=== PATIENT | female | born 1945 | race Two or more races ===

== ENCOUNTER 2017-09-18 12:16 | Outpatient (CLI) | payer OTHER ==
[~2017-09-18 12:16] MED LIST: PERCOCET 5/3251 TAB PO
== END 2017-09-18 12:59 | disposition home or self-care (01) ==
LOC: RAD 12:16
DX: J45.20 Mild intermittent asthma, uncomplicated (principal)

== ENCOUNTER 2018-11-13 11:40 | Outpatient (CLI) | payer OTHER | END 2018-11-13 11:54 | disposition home or self-care (01) | LOC: MAMO-SONO 11:40 | DX: Z12.31 Encounter for screening mammogram for malignant neoplasm of breast (principal); Z87.898 Personal history of other specified conditions; N60.11 Diffuse cystic mastopathy of right breast; N60.12 Diffuse cystic mastopathy of left breast ==

== ENCOUNTER → 2019-02-25 | Outpatient (CLI) | payer OTHER | END | disposition home or self-care (01) | LOC: RAD 14:59 | DX: S63.002A Unspecified subluxation of left wrist and hand, initial encounter (principal) ==

== ENCOUNTER 2019-02-26 10:13 | Outpatient (CLI) | payer OTHER | END 2019-02-26 10:14 | disposition home or self-care (01) | LOC: SONOGRAMA 10:13 → MAMO-SONO 10:15 | DX: S60.012A Contusion of left thumb without damage to nail, initial encounter (principal) ==

== ENCOUNTER 2020-06-01 12:42 | Outpatient (CLI) | payer OTHER | END 2020-06-01 12:50 | disposition home or self-care (01) | LOC: MAMO-SONO 12:42 | PROVIDERS: ATTEND Family Medicine | DX: Z12.31 Encounter for screening mammogram for malignant neoplasm of breast (principal); N60.11 Diffuse cystic mastopathy of right breast; N60.12 Diffuse cystic mastopathy of left breast ==

== ENCOUNTER 2020-07-02 13:47 | Outpatient (CLI) | payer OTHER | END 2020-07-02 13:48 | disposition home or self-care (01) | LOC: NUCLEAR 13:47 | PROVIDERS: ATTEND Family Medicine | DX: M85.80 Other specified disorders of bone density and structure, unspecified site (principal); M81.0 Age-related osteoporosis without current pathological fracture ==

== ENCOUNTER 2020-08-10 10:46 | Outpatient (CLI) | payer OTHER | END 2020-08-10 10:59 | disposition home or self-care (01) | LOC: RAD 10:46 | PROVIDERS: ATTEND Family Medicine | DX: R05 Cough (principal) ==

== ENCOUNTER 2021-09-19 11:48 | Outpatient (CLI) | payer OTHER | END 2021-09-19 11:57 | disposition home or self-care (01) | LOC: TOM 11:48 | PROVIDERS: ATTEND Family Medicine | DX: S00.93XA Contusion of unspecified part of head, initial encounter (principal) ==

== ENCOUNTER 2022-06-05 13:24 | Outpatient (CLI) | payer OTHER | END 2022-06-05 13:39 | disposition home or self-care (01) | LOC: MAMO-SONO 13:24 | PROVIDERS: ATTEND Family Medicine | DX: N60.11 Diffuse cystic mastopathy of right breast (principal); N60.12 Diffuse cystic mastopathy of left breast ==

== ENCOUNTER → 2022-06-21 | Outpatient (CLI) | payer OTHER | END | disposition home or self-care (01) | LOC: NUCLEAR 11:00 | PROVIDERS: ATTEND Family Medicine | DX: I73.9 Peripheral vascular disease, unspecified (principal) ==

== ENCOUNTER → 2022-06-23 | Outpatient (CLI) | payer OTHER | END | disposition home or self-care (01) | LOC: NUCLEAR 11:00 | DX: M81.0 Age-related osteoporosis without current pathological fracture (principal); I87.2 Venous insufficiency (chronic) (peripheral) ==

== ENCOUNTER 2022-09-11 09:53 | Outpatient (CLI) | payer OTHER | END 2022-09-11 10:10 | disposition home or self-care (01) | LOC: TOM 09:53 | PROVIDERS: ATTEND Internal Medicine Pulmonary Disease | DX: J43.2 Centrilobular emphysema (principal); Z72.0 Tobacco use; R06.02 Shortness of breath ==

== ENCOUNTER 2022-10-26 12:54 | Outpatient (CLI) | payer OTHER | END 2022-10-26 12:58 | disposition home or self-care (01) | LOC: RAD 12:54 | PROVIDERS: ATTEND Family Medicine | DX: R07.81 Pleurodynia (principal) ==

== ENCOUNTER 2024-03-03 10:28 | Outpatient (CLI) | payer OTHER ==
[~2024-03-03 10:28] MED LIST changes: +COZAAR100 MG
== END 2024-03-03 10:36 | disposition home or self-care (01) ==
LOC: RAD 10:28
PROVIDERS: ATTEND Family Medicine
DX: M25.519 Pain in unspecified shoulder (principal)

== ENCOUNTER 2024-03-19 12:18 | Outpatient (CLI) | payer OTHER | END 2024-03-19 12:29 | disposition home or self-care (01) | LOC: MRI 12:18 | PROVIDERS: ATTEND Family Medicine | DX: M75.102 Unspecified rotator cuff tear or rupture of left shoulder, not specified as traumatic (principal) | CPT/HCPCS: 73218 ==

== ENCOUNTER → 2024-12-23 | Outpatient (CLI) | payer OTHER | END | disposition home or self-care (01) | LOC: RAD 12:17 | PROVIDERS: ATTEND Family Medicine | DX: S70.01XA Contusion of right hip, initial encounter (principal) ==

== ENCOUNTER 2025-02-20 12:24 | Outpatient (CLI) | payer OTHER | END 2025-02-20 12:27 | disposition home or self-care (01) | LOC: MAMO-SONO 12:24 | PROVIDERS: ATTEND Family Medicine | DX: N60.11 Diffuse cystic mastopathy of right breast (principal); N60.12 Diffuse cystic mastopathy of left breast; Z12.31 Encounter for screening mammogram for malignant neoplasm of breast ==